=== PATIENT | male | born 2000 | race African-American/Black ===

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

== ENCOUNTER 2020-06-21 09:38 | Emergency (ER) | payer SELFPAY ==
[2020-06-21] MEDS ORDERED: predniSONE 20 MG TAB ONE (10:10)
== END 2020-06-21 10:27 | disposition home or self-care (01) ==
LOC: MADERS 09:38
DX: J45.909 Unspecified asthma, uncomplicated (principal); J06.9 Acute upper respiratory infection, unspecified
CPT/HCPCS: J7512; J7620

== ENCOUNTER 2021-02-10 20:54 | Emergency (ER) | payer SELFPAY ==
[2021-02-10 21:40] LABS: #Basophils 0.2 thou/uL (0.0-0.2); #Lymphocytes 2.3 thou/uL (1.20-3.40); #Monocytes 0.9 thou/uL (0.11-0.59); #Neutrophils 8.4 thou/uL (1.40-6.50); %Basophils 1.3 % (0.0-1.0); %Eosinophils 0.4 % (0.0-10.0); %Lymphocytes 19.4 % (28.0-48.0); %Monocytes 7.4 % (0.0-4.0); %Neutrophils 71.5 % (31.0-61.0); Hemoglobin 12.7 g/dL (14.0-18.0); Mean Corpuscular HGB CONC 31.6 g/dL (32.0-36.0); Mean Corpuscular Hemoglobin 26.7 pg (25.0-35.0); Mean Corpuscular Volume 84.6 fL (78.0-98.0); Mean Platelet Volume 7.8 fL (7.4-10.4); Platelet Count 342 thou/uL (130-400); RBC Distribution Width 11.5 % (11.5-14.5); Red Blood Cell (RBC) Count 4.73 mill/uL (4.00-5.20); White Blood Cell (WBC) Count 11.8 thou/uL (4.8-10.8)
[2021-02-10 22:05] LABS: ALT (SGPT) 28 U/L (8-55); AST (SGOT) 22 U/L (5-34); Albumin 4.5 g/dL (3.5-5.0); Alkaline Phosphatase 59 U/L (50-130); Anion Gap 17 mmol/L (10-20); BUN (Urea Nitrogen) 15 mg/dL (8.9-20.6); Bilirubin, Total 0.7 mg/dL (0.2-1.2); Calc. Creatinine Clearance 0 mL/min (70-130); Calcium 9.2 mg/dL (7.8-10.44); Carbon Dioxide 22 mmol/L (22-29); Chloride 104 mmol/L (98-107); Globulin 2.9 g/dL (2.4-3.5); Glucose 97 mg/dL (70-105); Potassium 3.3 mmol/L (3.5-5.1); Protein, Total 7.4 g/dL (6.0-8.3); Sodium 140 mmol/L (136-145)
== END 2021-02-11 00:20 | disposition left against medical advice (07) ==
LOC: MADERS 20:54
DX: S61.412A Laceration without foreign body of left hand, initial encounter (principal); S41.111A Laceration without foreign body of right upper arm, initial encounter; S80.212A Abrasion, left knee, initial encounter; R07.89 Other chest pain; M54.5 Low back pain; J45.909 Unspecified asthma, uncomplicated; V59.9XXA Occupant (driver) (passenger) of pick-up truck or van injured in unspecified traffic accident, initial encounter
CPT/HCPCS: 36415; 70450; 72125; 72131; 80053; 85025; 94760

== ENCOUNTER 2021-03-07 09:28 | Emergency (ER) | payer SELFPAY | END 2021-03-07 10:24 | disposition home or self-care (01) | LOC: MADERS 09:28 | DX: K04.7 Periapical abscess without sinus (principal); K03.81 Cracked tooth; K02.9 Dental caries, unspecified; J45.909 Unspecified asthma, uncomplicated; F17.210 Nicotine dependence, cigarettes, uncomplicated | CPT/HCPCS: 99283 ==

== ENCOUNTER 2021-03-18 15:08 | Emergency (ER) | payer OTHER, SELFPAY | END 2021-03-18 16:25 | disposition home or self-care (01) | LOC: MADERS 15:08 | DX: S50.812A Abrasion of left forearm, initial encounter (principal); J45.909 Unspecified asthma, uncomplicated; F17.210 Nicotine dependence, cigarettes, uncomplicated; V89.2XXA Person injured in unspecified motor-vehicle accident, traffic, initial encounter | CPT/HCPCS: 99283 ==

== ENCOUNTER 2021-05-15 10:00 | Emergency (ER) | payer SELFPAY ==
[2021-05-15] MEDS ORDERED: Dicyclomine 10 MG CAP ONE (10:51)
[2021-05-15] MEDS ORDERED: Mag-Al Plus 1200 MG/1200 MG/120 MG/30 ML UDCUP ONE (10:51)
[2021-05-15] MEDS ORDERED: Lidocaine Viscous Sol 2% 15 ml UD Cup ONE (10:51)
== END 2021-05-15 11:45 | disposition home or self-care (01) ==
LOC: MADERS 10:00
DX: R10.33 Periumbilical pain (principal); J45.909 Unspecified asthma, uncomplicated; Z87.891 Personal history of nicotine dependence
CPT/HCPCS: 99283

== ENCOUNTER 2021-06-21 03:25 | Emergency (ER) | payer SELFPAY | END 2021-06-21 04:50 | disposition home or self-care (01) | LOC: MADERS 03:25 | DX: J06.9 Acute upper respiratory infection, unspecified (principal); J45.909 Unspecified asthma, uncomplicated; Z87.891 Personal history of nicotine dependence | CPT/HCPCS: 99283 ==

== ENCOUNTER 2022-01-24 14:09 | Emergency (ER) | payer SELFPAY | END 2022-01-24 14:48 | disposition home or self-care (01) | LOC: MADERS 14:09 | DX: K08.89 Other specified disorders of teeth and supporting structures (principal); J45.909 Unspecified asthma, uncomplicated; Z87.891 Personal history of nicotine dependence | CPT/HCPCS: 99282 ==

== ENCOUNTER 2022-07-21 10:16 | Emergency (ER) | payer SELFPAY ==
[2022-07-21] MEDS ORDERED: Lidocaine 1%/Epinephrine 1:100K 10 ML VIAL ONE (10:39)
[2022-07-21] MEDS ORDERED: Boostrix 0.5 ML (Tdap) VIAL (>/=7 yrs of age) ONE (10:50)
[2022-07-21] MEDS ORDERED: Bacitracin 1 PK ONE (11:27)
== END 2022-07-21 11:32 | disposition home or self-care (01) ==
LOC: MADERS 10:16
DX: S21.211A Laceration without foreign body of right back wall of thorax without penetration into thoracic cavity, initial encounter (principal); S40.011A Contusion of right shoulder, initial encounter; W17.89XA Other fall from one level to another, initial encounter; Z87.891 Personal history of nicotine dependence; Z23 Encounter for immunization
CPT/HCPCS: 12001; 90471; 90715

== ENCOUNTER 2022-08-01 13:52 | Emergency (ER) | payer SELFPAY | END 2022-08-01 15:26 | disposition home or self-care (01) | LOC: MADERS 13:52 | DX: S21.211D Laceration without foreign body of right back wall of thorax without penetration into thoracic cavity, subsequent encounter (principal); F17.210 Nicotine dependence, cigarettes, uncomplicated; W19.XXXD Unspecified fall, subsequent encounter ==

== ENCOUNTER 2023-01-14 08:30 | Emergency (ER) | payer SELFPAY ==
[2023-01-14] MEDS ORDERED: Ipratropium/Albuterol 3 ML NEB ONE (09:07)
[2023-01-14] MEDS ORDERED: predniSONE 20 MG TAB ONE (09:07)
== END 2023-01-14 10:35 | disposition home or self-care (01) ==
LOC: MADERS 08:30
DX: J06.9 Acute upper respiratory infection, unspecified (principal); Z87.891 Personal history of nicotine dependence
CPT/HCPCS: 71045; 87081; 87430; J7512; J7620

== ENCOUNTER 2025-04-26 02:14 | Emergency (ER) | payer BC ==
[2025-04-26] MEDS ORDERED: Clindamycin 150 MG CAP ONE (02:47)
[2025-04-26] MEDS ORDERED: predniSONE 20 MG TAB ONE (02:47)
== END 2025-04-26 02:58 | disposition home or self-care (01) ==
LOC: MADERS 02:14
DX: K04.7 Periapical abscess without sinus (principal); K02.9 Dental caries, unspecified; F17.210 Nicotine dependence, cigarettes, uncomplicated
CPT/HCPCS: 99282; J7512

== ENCOUNTER 2025-05-26 09:05 | Emergency (ER) | payer BC | END 2025-05-26 09:54 | disposition home or self-care (01) | LOC: MADERS 09:05 | DX: K03.81 Cracked tooth (principal); K02.9 Dental caries, unspecified; F17.210 Nicotine dependence, cigarettes, uncomplicated | CPT/HCPCS: 99282 ==